=== PATIENT | male | born 1995 | race Caucasian/White ===

== ENCOUNTER 2023-07-05 21:22 | Inpatient (IN) | payer OTHER, SELFPAY ==
--- NOTE | ~2023-07-05 | CT_ITS ---
EXAMINATION: CT ABDOMEN AND PELVIS WITH CONTRAST CLINICAL INFORMATION: Right abdominal pain COMPARISON: None available. TECHNIQUE: Multidetector volumetric images were obtained from the superior aspect of the liver through the pubic symphysis following administration 85 mL of Omnipaque 350 intravenous contrast. Sagittal and coronal reformatted images were obtained on the technologist's workstation. Oral contrast: No This CT examination was performed using dose optimization techniques as appropriate, variously including the following: *Automated exposure control *Adjustment of mA and/or kV according to patient size (this includes techniques or standardized protocols for targeted exams where dose is matched to indication/reason for exam; i.e. extremities or head) *Use of iterative reconstruction technique DLP: 337 mGy-cm FINDINGS: LUNG BASES: The visualized lung bases are unremarkable. LIVER, GALLBLADDER, AND BILIARY TREE: The liver is normal in size, shape, and attenuation. No suspicious focal hepatic lesion or biliary ductal dilatation is present. The gallbladder is unremarkable with no evidence of radiopaque gallstones, gallbladder wall thickening, or obvious pericholecystic inflammatory changes. PANCREAS: Unremarkable. SPLEEN: Unremarkable. ADRENAL GLANDS: Unremarkable. KIDNEYS AND URETERS: Bilateral nephrograms are symmetric. No hydronephrosis or obstructing calculus identified. BLADDER: Minimally distended and not well evaluated. GASTROINTESTINAL TRACT: There are several mildly prominent fluid-filled small bowel loops in the abdomen, while the distal small bowel appears relatively collapsed. Transition from fluid-filled to collapsed small bowel appears to occur in the right abdomen such as on image 41/85. Overall appearance is concerning for sequelae of a developing small bowel obstruction. Limited evaluation for wall thickening in the colon due to luminal collapse. Appendix is nondilated. No free fluid or free air is seen. ABDOMINAL WALL: No significant hernia is appreciated. LYMPH NODES: Normal. VASCULAR: Retroaortic left renal vein is noted. PELVIC VISCERA: Unremarkable. OSSEOUS STRUCTURES: Unremarkable. CT/CT abdomen pelvis w IV con IMPRESSION: Findings suspicious for developing small bowel obstruction as described above.
[2023-07-05 21:49] VITALS: BP 120/73; PULSE 79; RESP 18; TEMP 36.9; O2SAT 100; BMI 20.2
--- NOTE | 2023-07-05 21:53 | MHC.EDTECH ---
Patient brought from the waiting room,changed into hospital attire,vitals taken,and call navas in reach
--- NOTE | 2023-07-05 22:03 | PC.NURSE ---
Patient triaged in room with significant other at bedside, states he's had abd pain/N/V/D since 1829 this pm, VS WNL, resting comfortably on stretcher, nasal swab for covid and flu sent.
[2023-07-05 22:32] LABS: IDNOW Serial# 16C4AD1C; IDNOW Serial# 55D5AD1C; Influenza A Negative (Negative); Influenza B2 Negative (Negative)
[2023-07-05 22:33] LABS: COVID-19 Test Negative (Negative)
--- NOTE | 2023-07-05 23:13 | ED_ITS ---
HPI - Nausea/Vomiting/Diarrhea General Chief complaint: Nausea/Vomiting/Diarrhea Stated complaint: vomiting, lightheadedness Time Seen by Provider: 07/05/23 22:22 Source: patient and other Mode of arrival: ambulatory History of Present Illness HPI Narrative: 27-year-old male who presents with decreased appetite throughout the day today, was able to have some crackers, denies any abdominal pain but states he went to dinner and was unable to eat and became lightheaded with feelings of nausea and vomiting as well as multiple episodes of loose stool without blood and otherwise denies any urinary symptoms or sick contacts. Related Data Home Medications Medication Instructions Recorded Confirmed No Known Home Meds 07/06/23 07/06/23 Allergies Allergy/AdvReac Type Severity Reaction Status Date / Time No Known Allergies Allergy Verified 07/05/23 21:52 Review of Systems 2 Review of Systems: Pertinent positives and negatives as stated in HPI [facility] Past Medical History Source: nursing notes reviewed Social History Social History Patient Tobacco Use Status: Never used Tobacco Smoked in Last 30 Days: No Use of substances other than those prescribed or required for medical reasons: No Advance Directives: No Advance Directives Information Provided: No Nutrition Risks: No Nutritional Risk Physical Exam 2 Vital Signs: Vital Signs: Last Vital Signs Temp 99.7 F 07/06/23 01:44 Pulse 73 07/06/23 01:44 Resp 16 07/06/23 01:44 BP 109/63 07/06/23 01:44 Pulse Ox 100 07/06/23 01:44 O2 Del Method Room Air 07/06/23 01:44 BMI result Body Mass Index 20.2 VITAL SIGNS: Reviewed. GENERAL: Well developed, well nourished, in no acute distress. HEAD: Normocephalic/atraumatic EYES: PERRLA, EOMI EARS: Ext canals without abnormality NOSE: Nares patent bilateral OROPHARYNX: no oral lesions noted, posterior pharynx clear NECK: Supple, no adenopathy LUNGS: Normal breath sounds. No adventitious sounds or accessory muscle use. SpO2<100> CARDIOVASCULAR: Regular rate and rhythm without noted murmurs ABDOMEN: Soft, non-tender, non-distended with bowel sounds. MUSCULOSKELETAL: No tenderness, deformities, or effusions noted on gross inspection. EXTREMITIES: No cyanosis, clubbing or edema. SKIN: Inspection of the skin reveals no rashes NEUROLOGIC: Alert and oriented x 4. Strength and sensation to light touch were grossly intact x 4. Medications Administered Discontinued Medications Generic Name Dose Route Start Last Admin Trade Name Phil PRN Reason Stop Dose Admin Sodium Chloride 1,000 mls @ 999 mls/hr 07/06/23 00:15 07/06/23 01:12 Ns IV 07/06/23 01:15 Infused .Q1H1M RAS Infusion Iohexol 100 ml 07/06/23 00:06 07/06/23 00:06 Iohexol 350 Mg/Ml 100 Ml Infus..Btl IV 07/06/23 00:07 85 ml ONCE ONE Administration Ondansetron HCl 4 mg 07/05/23 23:08 07/05/23 23:19 Ondansetron Odt 4 Mg Tab.Rapdis TRANSLINGU 07/05/23 23:09 4 mg ONCE ONE Administration Medical Decision Making Medical Decision Making MDM Narrative: 27-year-old male with history and clinical presentation, DDX: Viral gastroenteritis, no clinical suspicion given the benign abdominal exam for appendicitis/obstruction/pancreatitis or cholecystitis. Patient received translingual Zofran and will also provide p.o. challenge. 0045: I reviewed all investigations and hematologic indices demonstrate a leukocytosis with left shift and no anemia or thrombocytopenia. Patient is noted to be afebrile and has no significant abdominal complaints and initially thought to be noninfectious leukocytosis and reactive in nature secondary to patient's endorsed nausea and vomiting. Chemistry indices do not demonstrate an DAYO and there is no electrolyte derangement but there is a noted bump in total bilirubin levels. Urinalysis negative for UTI or hematuria. Viral testing negative for COVID-19/influenza 0115: CT scan demonstrates multiple dilated bowel loops without evidence of free air and a nondilated appendix, however in the setting elevated temperature as well as symptoms of nausea and vomiting will empirically treat with antibiotics, we 1st obtain lactic acid and blood cultures and patient will receive a dose of Zosyn. 0120: I discussed the case with Dr. Leong who accepts admission and agrees with administration of antibiotics at this time. Patient was made NPO and will receive IV fluids. All results and findings were discussed with the patient at bedside and he understands he will be admitted for further evaluation. Differential Diagnosis Differential Diagnoses: The differential diagnosis associated with the presentation includes Please see the discussion above Admission/Observation Consideration of admission/observation: Escalation of care including admission/observation considered Please see the discussion above Consult Healthcare Provider Management of the patient was discussed with: Network Intelligence Analyst Please see the discussion above Lab Data MDM Lab Attestation statement: I reviewed the patient's lab results. Please see the discussion above 07/05/23 23:13 07/05/23 23:13 Labs: Lab Results 07/05/23 07/05/23 07/05/23 Range/Units 21:57 23:13 23:42 WBC 15.7 H (4.8-10.8) X10*3/uL RBC 4.74 (4.60-5.80) X10*6/uL Hgb 14.2 (14.0-18.0) g/dl Hct 39.6 L (42.0-52.0) % MCV 83.5 (80.0-98.0) fL MCH 30.0 (27.0-33.0) pg MCHC 35.9 (31.0-36.0) g/dl RDW 12.4 (11.0-16.0) % Plt Count 299 (160-400) X10*3/uL MPV 9.2 L (9.4-12.4) fL Immature Gran % (Auto) 0.3 (0.0-0.4) % Neut % (Auto) 91.8 H (45-73) % Lymph % (Auto) 4.6 L (20-40) % Tripp % (Auto) 3.0 (2-11) % Eos % (Auto) 0.1 (0-4) % Baso % (Auto) 0.2 (0-2) % Lymph # (Auto) 0.7 L (1.2-4.9) X10*3/uL Tripp # (Auto) 0.5 (0.1-1.2) X10*3/uL Eos # (Auto) 0.0 (0.0-0.4) X10*3/uL Baso # (Auto) 0.0 (0.0-0.2) X10*3/uL Abs Immat Gran (auto) 0.05 H (0.00-0.03) X10*3/uL Absolute Neuts (auto) 14.4 H (2.0-8.3) x10*3/uL Absolute Nucleated RBC 0.000 (0.0-0.012) X10*3/uL Nucleated RBC % (auto) 0.0 (0.0-0.2) /100WBC Smear Tech's Comments VERIFIED Sodium 137 (135-145) mmol/L Potassium 4.1 (3.3-5.1) mmol/L Chloride 105 (96-108) mmol/L Carbon Dioxide 23 (22-29) mmol/L Anion Gap 13 (12-20) BUN 12 (9-16) mg/dL Creatinine 0.82 (0.5-1.4) mg/dL Estim Creat Clear Calc 113.1 Estimated GFR > 60 Random Glucose 115 (60-115) mg/dL Calcium 10.2 (8.4-10.2) mg/dL Total Bilirubin 1.4 H (0.0-1.0) mg/dL AST 16 (5-37) U/L ALT 15 (0-40) U/L Alkaline Phosphatase 78 (39-117) U/L Total Protein 8.4 H (6.5-8.0) g/dL Albumin 4.7 (3.5-5.0) g/dL Urine Color Yellow Urine Appearance Cloudy Urine pH 5.5 (5.0-9.0) Ur Specific [place] >= 1.030 H (1.005-1.025) Urine Protein Trace (Neg-Trace) mg/dL Urine Glucose (UA) Negative (Negative) mg/dL Urine Ketones Trace (Negative) mg/dL Urine Blood Negative (Negative) Urine Nitrite Negative (Negative) Ur Leukocyte Esterase Negative (Negative) COVID-19 (RUTH) Negative (Negative) COVID-19 Clin Com See Note Influenza Type A (LIVIER) Negative (Negative) Influenza Type B (LIVIER) Negative (Negative) Influenza A & B Note See Note Radiology Impression Discussion of test interpretation with radiology: I have reviewed the radiologist's reading. Radiologist Impression: Please see the discussion above Discharge Plan Discharge Clinical Impression: Bowel obstruction Patient Disposition: Admitted As Inpatient
[2023-07-05 23:19] LABS: Basophils Percent Auto 0.2 % (0-2); Eosinophils Percent Auto 0.1 % (0-4); Hematocrit 39.6 % (42.0-52.0); Hemoglobin 14.2 g/dl (14.0-18.0); Imm Gran Abs Auto 0.05 X10*3/uL (0.00-0.03); Imm Gran Pct Auto 0.3 % (0.0-0.4); Lymphocytes Absolute Auto 0.7 X10*3/uL (1.2-4.9); Lymphocytes Percent Auto 4.6 % (20-40); MANUAL DIFF FLAG SCAN; Mean Corpuscular HGB Conc 35.9 g/dl (31.0-36.0); Mean Corpuscular Volume 83.5 fL (80.0-98.0); Mean Platelet Volume 9.2 fL (9.4-12.4); Monocytes Absolute Auto 0.5 X10*3/uL (0.1-1.2); Neutrophils Absolute Auto 14.4 x10*3/uL (2.0-8.3); Neutrophils Percent Auto 91.8 % (45-73); Platelet Count 299 X10*3/uL (160-400); Red Blood Count 4.74 X10*6/uL (4.60-5.80); Red Cell Distribution Width 12.4 % (11.0-16.0); SCAN SMEAR FLAG 1; White Blood Count 15.7 X10*3/uL (4.8-10.8)
[2023-07-05] MEDS: Ondansetron ODT 4 MG TAB.RAPDIS TRANSLINGU (23:19)
[2023-07-05 23:34] LABS: Alanine Aminotransferase 15 U/L (0-40); Albumin Level 4.7 g/dL (3.5-5.0); Alkaline Phosphatase 78 U/L (39-117); Anion Gap 13 (12-20); Aspartate Amino Transferase 16 U/L (5-37); Bilirubin Total 1.4 mg/dL (0.0-1.0); Blood Urea Nitrogen 12 mg/dL (9-16); Calcium 10.2 mg/dL (8.4-10.2); Carbon Dioxide 23 mmol/L (22-29); Chloride 105 mmol/L (96-108); Creatinine Clr Calc Pharmacy 113.1; Estimated Glomerular Filt Rate > 60; Glucose Random 115 mg/dL (60-115); Potassium 4.1 mmol/L (3.3-5.1); Sodium 137 mmol/L (135-145); Total Protein 8.4 g/dL (6.5-8.0)
[2023-07-05 23:42] VITALS: BP 113/63; PULSE 75; RESP 16; TEMP 37.4; O2SAT 98
--- NOTE | 2023-07-05 23:43 | MHC.EDTECH ---
Hourly rounds and vitals completed,labs and a urine sample obtained and sent to lab. call navas at bedside
[2023-07-05 23:46] LABS: SLIDE REVIEW VERIFIED
[2023-07-06] VITALS (7 sets, daily range): BP systolic 95–113; BP diastolic 52–63; PULSE 67–76; RESP 14–19; TEMP 36.6–37.6; O2SAT 97–100
[2023-07-06] MEDS: iohexoL 350 MG/ML 100 ML INFUS..BTL IV (00:06)
[2023-07-06 00:07] LABS: Appearance Urine Cloudy; Color Urine Yellow; Glucose Urine UA Negative (Negative); Leukocyte Esterase Urine Negative (Negative); Nitrite Urine Negative (Negative); PH 5.5 (5.0-9.0); Specific Gravity - Urine >= 1.030 (1.005-1.025); Urine Blood Negative (Negative); Urine Ketones Trace mg/dL (Negative); Urine Protein Trace mg/dL (Neg-Trace)
[2023-07-06] MEDS: 0.9 % Sodium Chloride 1,000 ML 999 ML IV (00:10)
--- NOTE | 2023-07-06 02:03 | MHC.EDTECH ---
Hourly rounds and vitals completed,blood cultures and lactic obtained and sent to lab, Belongings list completed and copy placed in chart. Call navas in reach and girlfriend at bedside
[2023-07-06 02:14] LABS: Lactic Acid 1.2 mmol/L (0.5-2.0)
[2023-07-06] MEDS: Piperacillin Sodium/Tazobactam 3.375 GM in 0.9 % Sodium Chloride 50 ML IV (02:27)
[2023-07-06] MEDS: 0.9 % Sodium Chloride 1,000 ML 100 ML IVCONT ×3 (02:31→22:50)
[2023-07-06] MEDS: Morphine Sulfate 4 MG/ML CARTRIDGE 2 MG IVPUSH ×2 (03:02→07:23)
[2023-07-06] MEDS: ondansetron HCL 4 MG/2 ML VIAL IVPUSH (03:02)
--- NOTE | 2023-07-06 03:53 | PC.NURSE ---
Pt A&Ox3, reports intermittent pressure pain to upper ABD x today. Pt reports going out to eat and unable to tolerate PO fluids. Pt medicated per JUL.
--- NOTE | 2023-07-06 04:13 | MHC.EDTECH ---
Hourly rounds and vitals completed,patient is resting comfortably at this time. jesusita navas in reach
--- NOTE | 2023-07-06 06:11 | MHC.EDTECH ---
Hourly rounds and vitals completed,patient is resting comfortably at this time, call navas in reach
--- NOTE | 2023-07-06 07:53 | P.CONGS_ITS ---
History of Present Illness Consult details Consult date: 07/05/23 Narrative: 61-year-old male admitted early this morning by the ER because of multiple episodes of nausea and vomiting since yesterday afternoon. He said that he felt well during the morning but after lunch, he started to have this nausea and multiple episodes of vomiting. He said he had l2-3 episodes of watery diarrhea as well. He describes some mild abdominal pain which was episodic. He says that became lightheaded after he had been vomiting. He said he had a very similar episode about 5 years ago and was told he had viral gastroenteritis He has never had any abdominal surgery in the past. He currently feels much better. He said he has not had any emesis since last night. He has minimal abdominal pain if at all. Review of Systems 2 Constitutional: Constitutional: Denies chills and Denies fever(s) Cardiovascular: Cardiovascular: Denies chest pain, Denies dyspnea and Denies dyspnea on exertion Respiratory: Respiratory: Denies cough, Denies dyspnea and Denies dyspnea on exertion Gastrointestinal: Gastrointestinal: Denies hematochezia, Denies change in bowel habits and Reports vomiting Genitourinary: Genitourinary: Denies hematuria and Denies difficulty urinating Musculoskeletal: Musculoskeletal: Denies back pain and Denies limited range of motion Neurologic: Denies focal weakness and Denies convulsions Psychiatric: Psychiatric: Denies depression and Denies mood swings PMFSH Social History Social History Household Members: Significant Other Housing: Apartment Do you presently have visiting nurse or other home services: No Patient Tobacco Use Status: Never used Tobacco service: No Meds Allergies Allergy/AdvReac Type Severity Reaction Status Date / Time No Known Allergies Allergy Verified 07/05/23 21:52 Active Medications: Current Medications Sodium Chloride (Ns) 1,000 mls @ 100 mls/hr IVCONT .Q10H RAS Last Admin: 07/06/23 02:31 Dose: 100 mls/hr Morphine Sulfate (Morphine Sulfate 4 Mg/Ml Cartridge) 2 mg IVPUSH Q4H PRN; Protocol PRN Reason: Pain, Severe (Pain Scale 7-10) Last Admin: 07/06/23 07:23 Dose: 2 mg Ondansetron HCl (Ondansetron Hcl 4 Mg/2 Ml Vial) 4 mg IVPUSH Q8H PRN PRN Reason: Nausea and Vomiting Last Admin: 07/06/23 03:02 Dose: 4 mg Sodium Chloride (0.9 % Sodium Chloride Flush 3 Ml Syringe) 3 ml IVFLUSH QSHIFT [facility] Last Admin: 07/06/23 07:28 Dose: Not Given Home Medications Medication Instructions Recorded Confirmed Last Taken Type No Known Home Meds 07/06/23 07/06/23 Unknown History Physical Exam 2 Vital Signs: Vital Signs: Last Vital Signs Temp 99.2 F 07/06/23 06:09 Pulse 69 07/06/23 06:09 Resp 16 07/06/23 06:09 BP 113/56 L 07/06/23 06:09 Pulse Ox 97 07/06/23 06:09 O2 Del Method Room Air 07/06/23 06:09 BMI result Body Mass Index 20.2 Const: General: comfortable and no acute distress O rientation/consciousness: patient oriented x3 Neck: Neck: Yes no lymphadenopathy Resp: Auscultation: clear to auscultation bilaterally Cardio: Rhythm: regular rhythm GI: Inspection: No distended Palpation (GI): Soft to palpation, Tenderness to palpation present (GI) (Very minimal tenderness diffusely) and no guarding Neuro: General: patient oriented x3 Results Labs 07/07/23 05:21 07/07/23 05:21 Labs: Abnormal lab results 07/05/23 07/05/23 Range/Units 23:13 23:42 WBC 15.7 H (4.8-10.8) X10*3/uL Hct 39.6 L (42.0-52.0) % MPV 9.2 L (9.4-12.4) fL Neut % (Auto) 91.8 H (45-73) % Lymph % (Auto) 4.6 L (20-40) % Lymph # (Auto) 0.7 L (1.2-4.9) X10*3/uL Abs Immat Gran (auto) 0.05 H (0.00-0.03) X10*3/uL Absolute Neuts (auto) 14.4 H (2.0-8.3) x10*3/uL Total Bilirubin 1.4 H (0.0-1.0) mg/dL Total Protein 8.4 H (6.5-8.0) g/dL Ur Specific [place] >= 1.030 H (1.005-1.025) Short CBC 07/05/23 Range/Units 23:13 WBC 15.7 H (4.8-10.8) X10*3/uL Hgb 14.2 (14.0-18.0) g/dl Hct 39.6 L (42.0-52.0) % Plt Count 299 (160-400) X10*3/uL BMP 07/05/23 23:13 Sodium 137 Potassium 4.1 Chloride 105 Carbon Dioxide 23 BUN 12 Creatinine 0.82 Calcium 10.2 Liver Function 07/05/23 Range/Units 23:13 Total Bilirubin 1.4 H (0.0-1.0) mg/dL AST 16 (5-37) U/L ALT 15 (0-40) U/L Alkaline Phosphatase 78 (39-117) U/L Albumin 4.7 (3.5-5.0) g/dL Urine 07/05/23 Range/Units 23:42 Urine Color Yellow Urine Appearance Cloudy Urine pH 5.5 (5.0-9.0) Ur Specific [place] >= 1.030 H (1.005-1.025) Urine Protein Trace (Neg-Trace) mg/dL Urine Glucose (UA) Negative (Negative) mg/dL All other labs normal. Laboratory Results WBC 15.7 X10*3/uL (4.8-10.8) H 07/05/23 23:13 RBC 4.74 X10*6/uL (4.60-5.80) 07/05/23 23:13 Hgb 14.2 g/dl (14.0-18.0) 07/05/23 23:13 Hct 39.6 % (42.0-52.0) L 07/05/23 23:13 MCV 83.5 fL (80.0-98.0) 07/05/23 23:13 MCH 30.0 pg (27.0-33.0) 07/05/23 23:13 MCHC 35.9 g/dl (31.0-36.0) 07/05/23 23:13 RDW 12.4 % (11.0-16.0) 07/05/23 23:13 Plt Count 299 X10*3/uL (160-400) 07/05/23 23:13 MPV 9.2 fL (9.4-12.4) L 07/05/23 23:13 Immature Gran % (Auto) 0.3 % (0.0-0.4) 07/05/23 23:13 Neut % (Auto) 91.8 % (45-73) H 07/05/23 23:13 Lymph % (Auto) 4.6 % (20-40) L 07/05/23 23:13 Mayes % (Auto) 3.0 % (2-11) 07/05/23 23:13 Eos % (Auto) 0.1 % (0-4) 07/05/23 23:13 Baso % (Auto) 0.2 % (0-2) 07/05/23 23:13 Lymph # (Auto) 0.7 X10*3/uL (1.2-4.9) L 07/05/23 23:13 Mayes # (Auto) 0.5 X10*3/uL (0.1-1.2) 07/05/23 23:13 Eos # (Auto) 0.0 X10*3/uL (0.0-0.4) 07/05/23 23:13 Baso # (Auto) 0.0 X10*3/uL (0.0-0.2) 07/05/23 23:13 Abs Immat Gran (auto) 0.05 X10*3/uL (0.00-0.03) H 07/05/23 23:13 Absolute Neuts (auto) 14.4 x10*3/uL (2.0-8.3) H 07/05/23 23:13 Absolute Nucleated RBC 0.000 X10*3/uL (0.0-0.012) 07/05/23 23:13 Nucleated RBC % (auto) 0.0 /100WBC (0.0-0.2) 07/05/23 23:13 Smear Tech's Comments VERIFIED 07/05/23 23:13 Sodium 137 mmol/L (135-145) 07/05/23 23:13 Potassium 4.1 mmol/L (3.3-5.1) 07/05/23 23:13 Chloride 105 mmol/L (96-108) 07/05/23 23:13 Carbon Dioxide 23 mmol/L (22-29) 07/05/23 23:13 Anion Gap 13 (12-20) 07/05/23 23:13 BUN 12 mg/dL (9-16) 07/05/23 23:13 Creatinine 0.82 mg/dL (0.5-1.4) 07/05/23 23:13 Estim Creat Clear Calc 113.1 07/05/23 23:13 Estimated GFR > 60 07/05/23 23:13 Random Glucose 115 mg/dL (60-115) 07/05/23 23:13 Lactic Acid 1.2 mmol/L (0.5-2.0) 07/06/23 01:57 Calcium 10.2 mg/dL (8.4-10.2) 07/05/23 23:13 Total Bilirubin 1.4 mg/dL (0.0-1.0) H 07/05/23 23:13 AST 16 U/L (5-37) 07/05/23 23:13 ALT 15 U/L (0-40) 07/05/23 23:13 Alkaline Phosphatase 78 U/L (39-117) 07/05/23 23:13 Total Protein 8.4 g/dL (6.5-8.0) H 07/05/23 23:13 Albumin 4.7 g/dL (3.5-5.0) 07/05/23 23:13 Urine Color Yellow 07/05/23 23:42 Urine Appearance Cloudy 07/05/23 23:42 Urine pH 5.5 (5.0-9.0) 07/05/23 23:42 Ur Specific [place] >= 1.030 (1.005-1.025) H 07/05/23 23:42 Urine Protein Trace mg/dL (Neg-Trace) 07/05/23 23:42 Urine Glucose (UA) Negative mg/dL (Negative) 07/05/23 23:42 Urine Ketones Trace mg/dL (Negative) 07/05/23 23:42 Urine Blood Negative (Negative) 07/05/23 23:42 Urine Nitrite Negative (Negative) 07/05/23 23:42 Ur Leukocyte Esterase Negative (Negative) 07/05/23 23:42 COVID-19 (RUTH) Negative (Negative) 07/05/23 21:57 COVID-19 Clin Com See Note 07/05/23 21:57 Influenza Type A (LIVIER) Negative (Negative) 07/05/23 21:57 Influenza Type B (LIVIER) Negative (Negative) 07/05/23 21:57 Influenza A & B Note See Note 07/05/23 21:57 Impressions Abdomen/Pelvis CT 07/06/23 00:06 IMPRESSION: Findings suspicious for developing small bowel obstruction as described above. Imaging Abdomen CT scan report/results: report reviewed and image reviewed CT scan - pelvis: report reviewed and image reviewed Assessment and Plan (1) Bowel obstruction: Status: Acute He came to the emergency room last night because multiple episodes of vomiting, as well as some watery stools. He describes some abdominal pain which was episodic He currently feels much better. He denies any significant abdominal pain. He has had no vomiting since last night I have reviewed his CAT scan. There was note of some diffusely dilated bowel loops and the official report states that developing small bowel obstruction can not be ruled out. Clinical picture is not suggestive of bowel obstruction. His exam is very benign. Her abdomen is soft, nondistended without any guarding or rebound nor significant tenderness I will start him on clear liquids and plan to advance this as tolerated. He has been on IV fluids. He had leukocytosis so we will repeat his BC. His bilirubin was slightly elevated. This will be followed as well. He understands the plan well. His significant other is at bedside. Procedures Date of Service Date of Service: 07/07/23
--- NOTE | 2023-07-06 09:29 | MHC.CM.PN ---
CM MET WITH PT AT BEDSIDE. PT LIVES WITH FAMILY AND IS EMPLOYED F/T. NO HCP, DECLINES AT THIS TIME. NO PCP, [facility] [facility] PROVIDED. DP: HOME, NO SERVICES ANTICIPATED. PT HAS CAR IN LOT. CM WILL CONTINUE TO FOLLOW FOR ANY CHANGE IN DC PLAN/NEEDS
--- NOTE | 2023-07-06 15:28 | PM.EVENT ---
Event Note Date of Service: 07/07/23 Event Note: Seen on afternoon rounds Denies significant abdominal pain No vomiting Tolerating clear liquids well Abdomen remained soft benign nontender Trial of full liquid diet tonight Possible DC home tomorrow Time Spent With Patient Time: Total time managing care of this patient today ____ minutes.
[2023-07-07 04:00] VITALS: BP 112/57; PULSE 71; RESP 16; TEMP 36.3; O2SAT 98
[2023-07-07 05:47] LABS: Mean Corpuscular HGB Conc 34.3 g/dl (31.0-36.0); Mean Corpuscular Hemoglobin 30.2 pg (27.0-33.0); Mean Corpuscular Volume 88.2 fL (80.0-98.0); Mean Platelet Volume 9.5 fL (9.4-12.4); Platelet Count 241 X10*3/uL (160-400); Red Blood Count 3.97 X10*6/uL (4.60-5.80); Red Cell Distribution Width 12.7 % (11.0-16.0); White Blood Count 8.2 X10*3/uL (4.8-10.8)
[2023-07-07 06:03] LABS: Alanine Aminotransferase 11 U/L (0-40); Albumin Level 3.6 g/dL (3.5-5.0); Alkaline Phosphatase 58 U/L (39-117); Anion Gap 11 (12-20); Aspartate Amino Transferase 12 U/L (5-37); Bilirubin Direct 0.2 mg/dL (0.0-0.5); Bilirubin Total 1.1 mg/dL (0.0-1.0); Blood Urea Nitrogen 7 mg/dL (9-16); Calcium 8.8 mg/dL (8.4-10.2); Carbon Dioxide 26 mmol/L (22-29); Chloride 107 mmol/L (96-108); Creatinine Clr Calc Pharmacy 118.9; Estimated Glomerular Filt Rate > 60; Glucose Random 93 mg/dL (60-115); Potassium 3.8 mmol/L (3.3-5.1); Sodium 140 mmol/L (135-145); Total Protein 6.3 g/dL (6.5-8.0)
[2023-07-07 07:31] VITALS: BP 104/59; PULSE 70; RESP 16; TEMP 36.6; O2SAT 98
--- NOTE | 2023-07-07 09:12 | P.PNGS_ITS ---
Subjective Subjective Date of Service: 07/07/23 <Deborah Suresh PA-C - Last Filed: 07/07/23 09:15> 07/07/23 <Grady Leong MD - Last Filed: 07/07/23 11:12> Interval history: Feels much better. Denies abdominal pain, nausea or vomiting. Tolerating full liquids. Feels hungry. <Deborah Suresh PA-C - Last Filed: 07/07/23 09:15> Physical Exam 2 Vital Signs: Vital Signs: Last Vital Signs Temp 97.8 F 07/07/23 07:31 Pulse 70 07/07/23 07:31 Resp 16 07/07/23 07:31 BP 104/59 L 07/07/23 07:31 Pulse Ox 98 07/07/23 07:31 O2 Del Method Room Air 07/07/23 07:31 BMI result Body Mass Index 20.2 <Deborah Suresh PA-C - Last Filed: 07/07/23 09:15> Const: Orientation/consciousness: patient oriented x3 <Deborah Suresh PA-C - Last Filed: 07/07/23 09:15> Resp: Effort & Inspection: normal respiratory effort <JODY Flores Last Filed: 07/07/23 09:15> GI: Inspection: Yes distended (mild) <Deborah Suresh PA-C - Last Filed: 07/07/23 09:15> Palpation (GI): Soft to palpation, nontender, no guarding and not rigid < Deborah Suresh PA-C - Last Filed: 07/07/23 09:15> Skin: General skin exam: no rashes or lesions noted and no jaundice < Deborah Suresh PA-C - Last Filed: 07/07/23 09:15> Neuro: General: patient oriented x3 and moves all extremities <JODY Flores Last Filed: 07/07/23 09:15> Objective Data Active Medications Sodium Chloride (Ns) 1,000 mls @ 100 mls/hr IVCONT .Q10H [facility] Last Admin: 07/07/23 09:10 Dose: Not Given Documented By: UBALDO Non-Admin Reason: Physician Approved Morphine Sulfate (Morphine Sulfate 4 Mg/Ml Cartridge) 2 mg IVPUSH Q4H PRN; Protocol PRN Reason: Pain, Severe (Pain Scale 7-10) Last Admin: 07/06/23 07:23 Dose: 2 mg Documented By: NICOLAS Ondansetron HCl (Ondansetron Hcl 4 Mg/2 Ml Vial) 4 mg IVPUSH Q8H PRN PRN Reason: Nausea and Vomiting Last Admin: 07/06/23 03:02 Dose: 4 mg Documented By: JARON Sodium Chloride (0.9 % Sodium Chloride Flush 3 Ml Syringe) 3 ml IVFLUSH QSHIFT [facility] Last Admin: 07/07/23 09:08 Dose: Not Given Documented By: UBALDO Non-Admin Reason: IV Running <Deborah Suresh PA-C - Last Filed: 07/07/23 09:15> Labs CBC & Chem 7: 07/07/23 05:21 07/07/23 05:21 <Deborah Suresh PA-C - Last Filed: 07/07/23 09:15> Labs: Laboratory Results - last 24 hr 07/07/23 05:21 MCV 88.2 MCH 30.2 MCHC 34.3 RDW 12.7 Plt Count 241 MPV 9.5 Absolute Nucleated RBC 0.000 Nucleated RBC % (auto) 0.0 Anion Gap 11 L Estim Creat Clear Calc 118.9 Estimated GFR > 60 Random Glucose 93 Calcium 8.8 D Total Bilirubin 1.1 H Direct Bilirubin 0.2 AST 12 ALT 11 Alkaline Phosphatase 58 Total Protein 6.3 L Albumin 3.6 <Deborah Suresh PA-C - Last Filed: 07/07/23 09:15> Microbiology Microbiology Results: Microbiology 07/06/23 01:57 Blood Culture - Preliminary Blood - Venous No growth after 24 hours. 07/06/23 01:57 Blood Culture - Preliminary Blood - Venous No growth after 24 hours. <Deborah Suresh PA-C - Last Filed: 07/07/23 09:15> Procedures Date of Service Date of Service: 07/07/23 <Deborah Suresh PA-C - Last Filed: 07/07/23 09:15> 07/07/23 <Grady Leong MD - Last Filed: 07/07/23 11:12> Progress Note: A&P Assessment and plan (1) Bowel obstruction: Status: Acute <Deborah Suresh PA-C - Last Filed: 07/07/23 09:15> Assessment and Plan: completely asymptomatic tolerating diet passing flatus, BMs abd soft, nontender ffup labs ok ok to dc home overall clinicall picture more c/w gastroenteritis seen and examined independently <Grady Leong MD - Last Filed: 07/07/23 11:12> Assessment and Plan: Clinically appearing well, abdomen remains benign. Advance to solid diet. Stable for dc to home today. Can f/u with PCP upon discharge. <Deborah Suresh PA-C - Last Filed: 07/07/23 09:15> Time Spent With Patient Time: Total time managing care of this patient today ____ minutes. <Deborah Suersh PA-C - Last Filed: 07/07/23 09:15> Quality Stroke Does the patient have a stroke diagnosis?: No <Deborah Suresh PA-C - Last Filed: 07/07/23 09:15> VTE Prior VTE?: No <Deborah Suresh PA-C - Last Filed: 07/07/23 09:15> VTE Risk Level:: Medical - low <Deborah Suresh PA-C - Last Filed: 07/07/23 09:15> VTE Device Contraindication: Treatment Not Indicated <Deborah Suresh PA-C - Last Filed: 07/07/23 09:15> VTE Drug Contraindication: Treatment Not Indicated <Deborah Suresh PA-C - Last Filed: 07/07/23 09:15>
--- NOTE | 2023-07-07 09:21 | MHC.CM.PN ---
DP: PT HAS BEEN MEDICALLY CLEARED FOR DC HOME, NO SERVICES. PT HAS CAR IN LOT.
--- NOTE | 2023-07-10 13:40 | PM.DS ---
DS: Providers Provider Date of Service: 07/07/23 Date of admission: 07/06/23 01:31 Date of discharge: 07/07/23 Primary care physician: None Physician Attending physician on admission: Grady Leong Attending physician on discharge: Grady Leong DS: Diagnosis Discharge Diagnosis (1) Bowel obstruction: Status: Acute DS: Summary Hospital Course Hospital Course: HPI AT ADMISSION: 61-year-old male admitted early this morning by the ER because of multiple episodes of nausea and vomiting since yesterday afternoon. He said that he felt well during the morning but after lunch, he started to have this nausea and multiple episodes of vomiting. He said he had l2-3 episodes of watery diarrhea as well. He describes some mild abdominal pain which was episodic. He says that became lightheaded after he had been vomiting. He said he had a very similar episode about 5 years ago and was told he had viral gastroenteritis. He has never had any abdominal surgery in the past. He currently feels much better. He said he has not had any emesis since last night. He has minimal abdominal pain if at all. CT scan showed diffusely dilated bowel loops and the official report states that developing small bowel obstruction cannot be ruled out. Abdomen is soft, nondistended without any guarding or rebound nor significant tenderness. HOSPITAL COURSE: Clinical picture was not suggestive of bowel obstruction and his exam was very benign however he was admitted to the surgical service for observation and further treatment. He had leukocytosis and elevated bilirubin as well. He felt improved the morning following admission with decreased abdominal pain. His abdomen remained benign. He was advanced to clear liquids. The following day his WBC count returned to normal and bilirubin downtrended. He felt well and was advanced to a solid diet which he was tolerating. His abdomen remained benign. He felt ready for discharge. He was discharged to home on 07/07/23 in stable condition. Status at Discharge Functional status at discharge: independent ambulation Overall status at discharge: patient is back to baseline Time Attestation Discharge Coordination Time: discharge time of ____ minutes Quality: Safe Use of Opioids Does Pt have an Active Cancer Diagnosis on the Problem List?: No Quality: Stroke Does the patient have a stroke diagnosis?: No Physical Exam Vital Signs: Vital Signs: Last Vital Signs Temp 97.8 F 07/07/23 07:31 Pulse 70 07/07/23 07:31 Resp 16 07/07/23 07:31 BP 104/59 L 07/07/23 07:31 Pulse Ox 98 07/07/23 07:31 O2 Del Method Room Air 07/07/23 07:31 BMI result Body Mass Index 20.2 Const: General: comfortable, no acute distress and alert Orientation/consciousness: patient oriented x3 Resp: Effort & Inspection: normal respiratory effort GI: Inspection: No distended Palpation (GI): Soft to palpation, nontender and no guarding Skin: General skin exam: no rashes or lesions noted Neuro: General: patient oriented x3 and moves all extremities DS: Data Data Completed and Pending Labs on day of discharge: Preliminary micro results at discharge 07/06/23 01:57 Blood Culture - Preliminary Blood - Venous No growth after 48 hours. 07/06/23 01:57 Blood Culture - Preliminary Blood - Venous No growth after 48 hours. Discharge Plan Discharge Anticipated Discharge Date/Time: 07/07/23 15:53 Patient Disposition: Home, Self-Care Discharge Diagnosis: PSBO Referrals: Physician,None [Primary Care Provider] - 1 Week Discharge Medications: No Action No Known Home Meds Discharge Orders: Discharge Order (Routine); Ordered 07/07/23 Ordered By: Deborah Suresh Diet: Advance to usual diet Activity on Discharge: As tolerated Stand Alone Forms: Patient Portal Discharge page Activity Restrictions/Additional Instructions: Follow up with your primary care provider. Call Your Doctor If: ? ? -Your temperature exceeds 101.5? F? ? ? -You experience excessive pain or swelling ? ? -You have an unexpected reaction to medication ? ? -You experience continued vomiting/nausea Care Plan Goals: Return to baseline health and resume normal activities. Health Concerns: PSBO vs gastroenteritis Plan of Treatment: bowel rest, IVF Assessment: Improved Discharge Date/Time: 07/07/23 13:17
== END 2023-07-07 13:17 | disposition home or self-care (01) | DRG 392 ==
LOC: HO.ED 07-06 01:33 → HO.EDOVER 07-06 01:37 → HO.S3 07-06 07:08
PROVIDERS: Admitting Provider Surgery; Emergency Provider Student in an Organized Health Care Education/Training Program; Visit Provider Surgery
DX: K52.9 Noninfective gastroenteritis and colitis, unspecified (principal); Z20.822 Contact with and (suspected) exposure to COVID-19
CPT/HCPCS: 36415; 74177; 80048; 80053; 80076; 81003; 83605; 85025; 85027; 87040; 87502; 87635; 99285; J2270; J2405; J2543; Q9967

== ENCOUNTER → 2023-07-06 01:31 | Outpatient (BNV) | payer SELFPAY | PROVIDERS: Admitting Provider Surgery; Emergency Provider Student in an Organized Health Care Education/Training Program; Visit Provider Physician Assistant Surgical | DX: K56.609 Unspecified intestinal obstruction, unspecified as to partial versus complete obstruction (principal) | CPT/HCPCS: 99222; 99238; 99499 ==

== ENCOUNTER 2023-08-09 15:14 | Outpatient (AMB) | payer SELFPAY ==
--- NOTE | 2023-08-09 15:31 | A.OFFVIS_ITS ---
Intake Intake Visit Reasons: partial small bowel obstruction, [facility] [place] follow[place] Intake Note: This patient presents for [facility] [place] follow-up for bowel obstructions. Pt c/o; reports left knee pain, reports limited ROM LLE, reports no abdominal pain or cramping. Condominium Manager Required: No Accompanied by: Significant Other Allergies No Known Allergies Allergy (Verified 08/09/23 15:37) Medication List - Last Reconciled 08/09/23 by Grady Leong MD No Known Home Meds HPI partial small bowel obstruction, [facility] [place] followup HPI Details 27-year-old male here for follow-up afte r admission in the hospital. He was admitted last 07/06/2023 for nausea and vomiting. He had a CAT scan which showed dilated small bowel loops suggestive of partial or early small bowel obstruction. However, clinically he was not obstructed. I admitted him overnight and his symptoms had improved. He was discharged on hospital day 1. He has had no symptoms since then. He feels well overall. His only complaint is he has left knee pain. [facility] Medical History (Updated 08/09/23 @ 16:08 by Grady Leong MD) Hospital discharge follow-up Social History Household Members: Significant Other Housing: Apartment Do you presently have visiting nurse or other home services: No Patient Tobacco Use Status: Never used Tobacco service: No Review of Systems Const Denies chills and Denies fever(s) Card Denies chest pain, Denies dyspnea and Denies dyspnea on exertion Resp Denies cough, Denies dyspnea and Denies dyspnea on exertion GI Denies hematochezia and Denies change in bowel habits Denies hematuria and Denies difficulty urinating Musc Denies back pain and Denies limited range of motion Neuro Denies focal weakness and Denies convulsions Psych Denies depression and Denies mood swings Physical Exam Const General: comfortable and no acute distress Orientation/consciousness: patient oriented x3 Neck Neck: Yes no lymphadenopathy Resp Auscultation: clear to auscultation bilaterally Cardio Rhythm: regular rhythm GI Palpation (GI): Soft to palpation, nontender and no guarding Neuro General: patient oriented x3 Assessment & Plan Assessment & Plan (1) Hospital discharge follow-up: Code(s): Z09 - Encounter for follow-up examination after completed treatment for conditions other than malignant neoplasm Plan: He remains asymptomatic. His symptoms were likely secondary to some form of gastroenteritis at that time. His abdomen remained soft and benign. He clinically did not have obstruction He was recommended to see his primary care physician about his left knee pain. He can follow up with me on a p.r.n. basis. Coding Level of Care Code Est Pt Level 2 (08830) Diagnoses Hospital discharge follow-up Z09
== END 2023-08-09 16:06 | disposition home or self-care (01) ==
PROVIDERS: Visit Provider Surgery
DX: Z09 Encounter for follow-up examination after completed treatment for conditions other than malignant neoplasm (principal)
CPT/HCPCS: 99212

== ENCOUNTER → 2023-08-09 15:14 | Outpatient (BNVA) | payer OTHER, SELFPAY | PROVIDERS: Visit Provider Surgery | DX: Z09 Encounter for follow-up examination after completed treatment for conditions other than malignant neoplasm (principal) | CPT/HCPCS: 99212 ==